=== PATIENT | male | born 1935 | race Caucasian/White ===

== ENCOUNTER 2019-06-28 13:19 | Outpatient (CLI) | payer MEDICARE, BC | END 2019-06-28 23:59 | disposition home or self-care (01) | LOC: CFH 13:19 | PROVIDERS: ATTEND Internal Medicine Cardiovascular Disease | DX: I35.0 Nonrheumatic aortic (valve) stenosis (principal) | CPT/HCPCS: 93306 ==

== ENCOUNTER 2019-12-05 12:00 | Outpatient (CLI) | payer MEDICARE, BC ==
[2019-12-05] MEDS ORDERED: OMNIPAQUE 350 MG/ML, 100ML BOTTLE ONE (13:30)
== END 2019-12-05 23:59 | disposition home or self-care (01) ==
LOC: CFH 12:00
PROVIDERS: ATTEND Internal Medicine
DX: K80.20 Calculus of gallbladder without cholecystitis without obstruction (principal); M51.37 Other intervertebral disc degeneration, lumbosacral region; M43.17 Spondylolisthesis, lumbosacral region
CPT/HCPCS: 74177; Q9967